=== PATIENT | female | born 1990 | race Caucasian/White ===

== ENCOUNTER 2016-09-11 09:38 | Inpatient (IN) | payer OTHER ==
[2016-09-11] VITALS (13 sets, daily range): BP systolic 100–128; BP diastolic 60–94
[~2016-09-11] VITALS: Ht 167.6 cm; Wt 72.7 kg
[2016-09-11] MEDS ORDERED: LR 1,000 ML IV SCH (10:52)
--- NOTE | 2016-09-11 11:18 | HPEPDOC ---
Obstetrical History & Physical General Date of Admission Sep 11, 2016 at 10:50 History of Present Illness 26 yo @ 39+2 by 8+4 wk US on [id number], presents to L&D with CTXs. Denies LOF, DFM and VB. GBS negative. Chief Complaint: Contractions, term Information Provided By: Patient Age: 26 : 3 Term: 2 Pre-term: 0 Abortions: 0 Livin Care Care: Good Care Number of Visits: 8 Dating Final EDC: Sep 16, 2016 Final EDC for Daily Update: Sep 16, 2016 Final EDC by: 1st trimester (US) LMP: Nov 29, 2015 1st Trimester Date: Feb 07, 2016 Weeks + Days: 8.4 Estimated Date of Confinement: Sep 16, 2016 EGA at Admission: 39.2 Antepartum Course Diagnos(e)s 1. Headaches 2. GERD Height (inches): 66 Pre- weight (lbs.): 138 Admission Weight (lbs.): 160 Change in Weight (lbs.): 22 Past Medical History Past Obstetrical History #1: Past Obstetrical History: Multigravida Date of Delivery: July 09, 2009 Gestation: 39 Type of Delivery: Spontaneous Vaginal Del. Sex of Infant: Male Weight of (grams): 3200 Complications: No Past Obstetrical History #2: Past Obstetrical History: Multigravida Date of Delivery: Mar 27, 2011 Gestation: 39 Type of Delivery: Spontaneous Vaginal Del. Sex of : Male Weight of Infant (grams): 3900 Complications: No SURVEYOR MINE History: No pertinent history Past Medical History Medical History anxiety and depression-no issues for several years Surgical History: Breast augmentation (2012), [place] teeth (2009), Other (LEFT EYE SURGERY 1994) Social History Marital Status: Family situation: Spouse/partner home Psychosocial History: Anxiety, [place] SI and HI, Depression * Smoker: non-smoker Alcohol: Denies Drugs: denies Abuse Violence Screening Have you been hit/kicked/slapp: No Have you been sexually assault: No Imunizations Tdap status: current ([id number]) Influenza Status: current ([id number]) Physical Examination Physical Examination GENERAL: A&O x 3 BREAST: Gravid ABDOMEN: Gravid and non-tender to touch. FETUS: VTX by Jamal and SVE HEART RATE: RRR, no m/r/g LUNGS: CTA EXTREMITIES: No edema. No clonus. DTRs +1 EFW- 3900 grams SVE- 5/80/-2 Laboratory Data CBC/BMP 7.5/12.5/36.4/192 Urine Culture: No Growth Pertinent Laboratoy Data Blood Type: B+ RBC Antibody Screen: Negative HIV: Negative Hepatitis B: Negative Hepatitis C: Unknown Rapid Plasma Reagin: Nonreactive Rubella: Immune Varicella: Immune Chlamydia/Gonorrhea: Negative Group B Streptococcus: Negative Cystic Fibrosis: Negative Glucose Tolerance Test: 93 Anatomy Ultrasound Ultrasound Date: Apr 29, 2016 Placenta Location: Posterior Normal Anatomy: Yes Placenta Previa: No Estimated Weight (grams): 371 Steroid Therapy Steroid Therapy: No Vaginal Examination Dilation: 5 cm Effacement: 80+% Station: -2 Cervical Consistency: Soft Cervical Position: Anterior Presentation: Cephalic presentation Position: Vertex (occiput) Tocometer Contractions: Yes Frequency: other (Q 3-8 min) Duration: less than 60 seconds Strength: palpated as moderate, resting tone palp/soft Multi-drug resistant Organism: No history of MDRO Assessment/Plan Assessment 26 yo @ 39+2 by 8+4 wk US on [id number], presents to L&D in active labor with CAT I FHR tracing Plan Admit and orient. Recovery Auditor and consent. Diet: clear liquids GBS negative Labs and IVs per unit protocol Counseled on labor process LR 1000 ml bolus and then @ 125 ml/hr when epidural is placed Anticipate C-S as appropriate. TESHA LEO CNM Sep 11, 2016 11:18
[2016-09-11 11:34] LABS: MEAN CORPUSCULAR HGB CONC 35.1 g/dl (32.0-36.5); MEAN CORPUSCULAR VOLUME 91.2 fl (80.0-96.0); RED CELL DISTRIBUTION WIDTH 13.8 % (11.5-14.5); WHITE BLOOD COUNT 8.9 K/mm3 (4.0-10.0)
[2016-09-11] MEDS ORDERED: PRENTAB9 PO (11:46)
[2016-09-11] MEDS ORDERED: ZYRT10CA PO (11:46)
[2016-09-11] MEDS ORDERED: RANI15TA PO (11:46)
[2016-09-11] MEDS ORDERED: PROBCAP4 PO (11:46)
[2016-09-11] MEDS ORDERED: FENTANYL 2MCG/ML ROPIVACAINE 0.2% IN 0.9% NACL 200ML IVBAG As Ordered ONE (13:10)
--- NOTE | 2016-09-11 13:11 | IPNPDOC ---
Text Note Date of Service The patient was seen on 09/11/16. NOTE [id number] @ 1300 Called to room approx 30 min ago b/c she was feeing pressure. , Pt went to hands and knees and labored for approx 20 min. During this time when FHR was tracked it was noted to be between 110-120 range. Frequently tracking maternal heart rate. She then stated she needed to poop. She was 8/100/0 and requested she be able to go to the bathroom. Anesthesia arrived for epidural approx 5 min later. VS,Fishbone, I+O VS, Fishbone, I+O Laboratory Tests 09/11/16 11:18 Red Blood Count 3.48 L, Mean Corpuscular Volume 91.2, Mean Corpuscular Hemoglobin 32.0, Mean Corpuscular Hemoglobin Concent 35.1, Red Cell Distribution Width 13.8 TESHA LEO CNM Sep 11, 2016 13:11
--- NOTE | 2016-09-11 13:12 | IPNPDOC ---
Text Note Date of Service The patient was seen on 09/11/16. NOTE [id number] @ 1155 (late entry) AROM with moderate amount of clear fluid @ 1155. No odor noted VS,Fishbone, I+O VS, Fishbone, I+O Laboratory Tests 09/11/16 11:18 Red Blood Count 3.48 L, Mean Corpuscular Volume 91.2, Mean Corpuscular Hemoglobin 32.0, Mean Corpuscular Hemoglobin Concent 35.1, Red Cell Distribution Width 13.8 TESHA LEO CNM Sep 11, 2016 13:12
[2016-09-11] MEDS ORDERED: OXYTOCIN 30 UNITS IN 0.9% NaCl 500ML IV BAG (J2590) As Ordered ONE (13:23)
[2016-09-11] MEDS ORDERED: MOM 30ML SUSPENSION UDC PO PRN (13:45)
[2016-09-11] MEDS ORDERED: DOCUSATE SODIUM 100 MG CAP PO PRN (13:45)
[2016-09-11] MEDS ORDERED: ONDANSETRON 4MG/2ML VIAL (J2405) IV PRN (13:45)
[2016-09-11] MEDS ORDERED: PROMETHAZINE 25 MG TAB PO PRN (13:45)
[2016-09-11] MEDS ORDERED: ACETAMINOPHEN 500 MG TAB PO PRN (13:45)
[2016-09-11] MEDS: IBUPROFEN 800 MG TAB PO PRN ×2 (13:58→22:03)
--- NOTE | 2016-09-11 14:49 | DNPDOC ---
[facility] Delivery Note Delivery Note DATE OF DELIVERY: Sep 11, 2016 at 1323 PREDELIVERY DIAGNOSIS: 39+2 wks POST DELIVERY DIAGNOSIS: Delivered. PROCEDURE: TESFAYE COMPUTER TRAINING SPECIALIST:Tesha Leo CNM ANESTHESIA: none ESTIMATED BLOOD LOSS: 100 mL. FINDINGS: Female infant, 9/9 , infant wt not done at time of delivery summary DELIVERY SUMMARY: 26 yo presented in active labor. AROM clear fluid @ 1153. female @ 1323. Called to bedside and MELANIE Isaacs was delivering the body. No nuchal cord noted. Infant had a vigorous cry and was placed to mother's chest. Delayed cord clamping x 3 min. Cord clamped x 2 and cut by FOB. Placenta delivered intact with a 3 vessel cord approx 5 min later. Pitocin bolus started @ delivery of placenta. No lacerations noted. EBL-100 ml, APGARS 9/9. TESHA LEO CNM Sep 11, 2016 14:49
[2016-09-11] MEDS ORDERED: OXYTOCIN INJ 10 UNITS/ML VIAL (J2590) IV ONE (15:15)
[2016-09-11] MEDS ORDERED: OXYTOCIN 30 UNITS IN 0.9% NaCl 500ML IV BAG (J2590) IV SCH (15:30)
[2016-09-12] MEDS: IBUPROFEN 800 MG TAB PO PRN (06:06)
[2016-09-12 06:18] VITALS: BP 99/57
--- NOTE | 2016-09-12 07:06 | IPNPDOC ---
Progress Note Date of Service The patient was seen on 09/12/16 at 06:59. Progress Note BRIEF SUMMARY OF LABOR AND DELIVERY: Patient is a 26 yo s/p of female , 7 lbs 1 oz(3190 grams) LABS AND OTHER LABS ORDERED THIS ADMISSION: Blood type: B and Rh postive, Hepatitis B surface antigen (HBsAG): Negative, Rubella immune, Gonorrhea negative, Chlamydia negative SUBJECTIVE: Patient reports she is comfortable. Bleeding scant, breast-feeding, ambulating without difficulty, pain well controlled, control desires mirena. Flatus present, BM during delivery OBJECTIVE: PHYSICAL EXAMINATION: VITAL SIGNS: WNL, afebrile CARDIOVASCULAR: RRR, no m/r/g LUNGS: CTA BREAST EXAMINATION: no erythema or engorgement FUNDUS: Firm at U-2 PERINEUM: intact EXTREMITIES: bilat LE no edema or erythema, no pain/discomfort with walking ASSESSMENT: 26 yo status post without laceration. Doing well, day #1. PLAN: Education/discharge education Discharge or plans for: today Return for fever, pain or bleeding. control plans: mirena, call to have HCG placed and will do at 6 wk PP visit. No IC for 2 wks prior to placement Followup plans: 6 wk PP VS, I&O, 24H, Carleen Vital Signs/I&O Vital Signs Date Time Temp Pulse Resp B/P (MAP) Pulse Ox O2 Delivery O2 Flow Rate FiO2 09/12/16 06:18 98.7 85 18 99/57 (71) I&O- Last 24 Hours up to 6 AM 09/12/16 06:00 Intake Total 1000 ml Output Total 100 ml Balance 900 ml Laboratory Data 24H LABS Laboratory Tests 2 09/11/16 10:58: Serology Scanned Report Hepatitis B Testing 09/11/16 11:18: Syphilis Serology NONREACTIVE CBC/BMP Laboratory Tests 09/11/16 11:18 Red Blood Count 3.48 L, Mean Corpuscular Volume 91.2, Mean Corpuscular Hemoglobin 32.0, Mean Corpuscular Hemoglobin Concent 35.1, Red Cell Distribution Width 13.8 TESHA LEO CNM Sep 12, 2016 07:06
[2016-09-12] MEDS ORDERED: PRENATAL VITAMINS CHEWABLE TABLET PO SCH (09:00)
[2016-09-12] MEDS ORDERED: COLA100C5 PO (10:26)
[2016-09-12] MEDS ORDERED: IBUP-1114 PO (10:26)
[2016-09-12] MEDS ORDERED: ACET50TA PO (10:26)
== END 2016-09-12 14:35 | disposition home or self-care (01) | DRG 775 ==
LOC: M LDO 09:38 → M LDI 10:50 → M OBS 16:59
PROVIDERS: ADMIT Midwife; ATTEND Midwife
PROC: 10E0XZZ Delivery of Products of Conception, External Approach (ICD-10-PCS; principal; 2016-09-11)
PROC: 10907ZC Drainage of Amniotic Fluid, Therapeutic from Products of Conception, Via Natural or Artificial Opening (ICD-10-PCS; 2016-09-11)
DX: O80 Encounter for full-term uncomplicated delivery (principal); Z37.0 Single live birth; Z3A.39 39 weeks gestation of pregnancy; Z98.82 Breast implant status

== ENCOUNTER → 2017-01-29 | Outpatient (CLI) | payer OTHER ==
[~2017-01-29] MED LIST: ACET50TA PO; COLA100C5 PO; IBUP-1114 PO; ISOVUE-370 76% 100ML VIAL (Q9967) As Ordered ONE; PRENTAB9 PO; PROBCAP4 PO; RANI15TA PO; ZYRT10CA PO
--- NOTE | 2017-01-29 10:03 | REP ---
CT HEAD WITHOUT AND WITH CONTRAST: HISTORY: Migraine headaches. CONTRAST: Isovue 370, 75 mL. There is no intraparenchymal hemorrhage, mass or midline shift. There is no abnormal enhancement. The ventricular system is normal in appearance. There is no extracerebral collection. The visualized sinuses are clear. IMPRESSION: There is no intracranial lesion. Signed by Anurag Buenrostro MD 01/29/2017 10:07 A
== END ==
LOC: M RAD 09:24
DX: G43.909 Migraine, unspecified, not intractable, without status migrainosus (principal)

== ENCOUNTER → 2017-04-24 | Outpatient (REF) | payer OTHER | LOC: M SFHCLERA 20:25 | DX: Z01.89 Encounter for other specified special examinations (principal) ==